=== PATIENT | female | born 1975 | race Caucasian/White ===

== ENCOUNTER 2019-11-13 11:49 | Observation (INO) | payer BC ==
[2019-11-13] MEDS ORDERED: SODIUM CHLORIDE 0.9% 1,000 ML IV STA (11:51)
[2019-11-13] MEDS ORDERED: ONDANSETRON 4 MG/2 ML VIAL IVP STA (12:08)
[2019-11-13] MEDS ORDERED: FAMOTIDINE 20 MG/2 ML VIAL IV STA (12:08)
--- NOTE | 2019-11-13 12:15 | ED ---
General Adult HPI - General Chief complaint: Recheck/Abnormal Lab/Rx Stated complaint: pt states gallstone and bloodclot by vein Time Seen by Provider: 11/13/19 11:50 Source: patient, family, RN/MD, RN notes reviewed Mode of arrival: ambulatory Limitations: no limitations - History of Present Illness Initial comments: patient is a pleasant 43-year-old female presenting to the emergency department with abdominal discomfort. Onset of symptoms was around 3 days ago. Patient has associated nausea. No vomiting or diarrhea. Patient does have history of previous cholecystectomy. Patient states discomfort is mostly mid and right abdomen and somewhat towards the back as well. No fevers. Discomfort is starting to become somewhat severe. Patient saw her doctor yesterday andhad blood work done and ultrasound done this morning. Patient was advised to come to the emergency department. - Related Data Allergies Allergy/AdvReac Type Severity Reaction Status Date / Time doxycycline Allergy Rash/Hives Verified 11/13/19 12:41 hydrocodone Allergy Unknown Verified 11/13/19 12:35 hydromorphone Allergy Unknown Verified 11/13/19 12:35 morphine Allergy Unknown Verified 11/13/19 12:35 sulfamethoxazole Allergy Rash/Hives Verified 11/13/19 12:41 [From Bactrim] tramadol Allergy Unknown Verified 11/13/19 12:35 trimethoprim [From Bactrim] Allergy Rash/Hives Verified 11/13/19 12:41 Review of Systems ROS Statement: Those systems with pertinent positive or pertinent negative responses have been documented in the HPI. ROS Other: All systems not noted in ROS Statement are negative. Constitutional: Denies: fever Eyes: Denies: eye pain ENT: Denies: ear pain Respiratory: Denies: cough, dyspnea Cardiovascular: Denies: chest pain Endocrine: Denies: fatigue Gastrointestinal: Reports: as per HPI, abdominal pain Genitourinary: Denies: dysuria Musculoskeletal: Reports: back pain Skin: Denies: rash Neurological: Denies: weakness Past Medical History Past Medical History: Fibromyalgia History of Any Multi-Drug Resistant Organisms: None Reported Past Surgical History: Section, Cholecystectomy Past Psychological History: No Psychological Hx Reported Smoking Status: Never smoker Past Alcohol Use History: None Reported Past Drug Use History: None Reported General Exam Limitations: no limitations General appearance: alert, in no apparent distress Head exam: Present: normocephalic Eye exam: Present: normal appearance, PERRL ENT exam: Present: normal oropharynx Neck exam: Present: normal inspection Respiratory exam: Present: normal lung sounds bilaterally Cardiovascular Exam: Present: regular rate, normal rhythm Expanded Peripheral pulses: 2+: Dorsalis Pedis (R), Dorsalis Pedis (L) GI/Abdominal exam: Present: soft, tenderness (mild to moderate tenderness mostly in the epigastric region), normal bowel sounds. Absent: distended, guarding, rebound, rigid, pulsatile mass Extremities exam: Present: normal inspection. Absent: pedal edema, calf tenderness Neurological exam: Present: alert Psychiatric exam: Present: normal affect, normal mood Skin exam: Present: normal color Course Vital Signs 11/13/19 12:07 Temperature 98.7 F Pulse Rate 94 Respiratory 18 Rate Blood Pressure 143/99 O2 Sat by Pulse 100 Oximetry - Reevaluation(s) Reevaluation #1: 11/13/19 12:13 Case was discussed with Dr. Dubois who did see patient. She states patient presented with right upper quadrant pain. She states hepatitis panel liver functions were normal from yesterday. Ultrasound showed common bile duct dilated with concern for echogenic stone. There is also question of portal vein thrombosis. She does request admission with vascular and GI consult. Also request computed tomography scan and d-dimer. Patient and should receive heparin if d-dimer is positive or CT is positive otherwise can defer until vascular evaluation. Medical Decision Making - Medical Decision Making Patient reevaluated and resting comfortably in bed. Patient and family updated. Case was discussed in detail with Dr. Allen who will admit covering for Dr. Dubois. - Lab Data Result diagrams: 11/13/19 12:30 11/13/19 12:30 Lab Results 11/13/19 11/13/19 11/13/19 Range/Units 12:30 12:30 12:30 WBC 7.5 (3.8-10.6) k/uL RBC 5.05 (3.80-5.40) m/uL Hgb 14.0 (11.4-16.0) gm/dL Hct 41.5 (34.0-46.0) % MCV 82.2 (80.0-100.0) fL MCH 27.7 (25.0-35.0) pg MCHC 33.7 (31.0-37.0) g/dL RDW 12.6 (11.5-15.5) % Plt Count 384 (150-450) k/uL Neutrophils % 77 % Lymphocytes % 17 % Monocytes % 4 % Eosinophils % 1 % Basophils % 0 % Neutrophils # 5.8 (1.3-7.7) k/uL Lymphocytes # 1.3 (1.0-4.8) k/uL Monocytes # 0.3 (0-1.0) k/uL Eosinophils # 0.1 (0-0.7) k/uL Basophils # 0.0 (0-0.2) k/uL PT 10.2 (9.0-12.0) sec INR 0.9 (<1.2) APTT 23.8 (22.0-30.0) sec D-Dimer 0.23 (<0.60) mg/L FEU Sodium 139 (137-145) mmol/L Potassium 4.5 (3.5-5.1) mmol/L Chloride 104 (98-107) mmol/L Carbon Dioxide 24 (22-30) mmol/L Anion Gap 11 mmol/L BUN 9 (7-17) mg/dL Creatinine 0.97 (0.52-1.04) mg/dL Est GFR (CKD-EPI)AfAm 82 (>60 ml/min/1.73 sqM) Est GFR (CKD-EPI)NonAf 71 (>60 ml/min/1.73 sqM) Glucose 103 H (74-99) mg/dL Calcium 10.1 (8.4-10.2) mg/dL Total Bilirubin 0.7 (0.2-1.3) mg/dL AST 31 (14-36) U/L ALT 23 (4-34) U/L Alkaline Phosphatase 69 (38-126) U/L Total Protein 8.4 H (6.3-8.2) g/dL Albumin 5.2 H (3.5-5.0) g/dL Lipase 63 (23-300) U/L - Radiology Data Radiology results: report reviewed (computed tomography scan of the abdomen pelvis does not show any evidence of portal vein thrombosis. Common bile duct is mildly prominent at 8 mm compatible with postoperative state.) Disposition Clinical Impression: Abdominal pain Disposition: ADMITTED IP TO THIS HOSP Is patient prescribed a controlled substance at d/c from ED?: No Referrals: Chrau Dubois MD [Primary Care Provider] - 1-2 days Decision Time: 14:09
[2019-11-13 13:07] LABS: Basophils % (A) 0 %; Eosinophils # (A) 0.1 k/uL (0-0.7); Eosinophils % (A) 1 %; HCT 41.5 % (34.0-46.0); Lymphocytes # (A) 1.3 k/uL (1.0-4.8); Lymphocytes % (A) 17 %; MCH 27.7 pg (25.0-35.0); MCHC 33.7 g/dL (31.0-37.0); MCV 82.2 fL (80.0-100.0); Mean Platelet Volume 7.8; Monocytes # (A) 0.3 k/uL (0-1.0); Monocytes % (A) 4 %; Neutrophils # (A) 5.8 k/uL (1.3-7.7); Neutrophils % (A) 77 %; Platelet Count 384 k/uL (150-450); RBC 5.05 m/uL (3.80-5.40); RDW 12.6 % (11.5-15.5); WBC 7.5 k/uL (3.8-10.6)
[2019-11-13 13:15] LABS: Albumin 5.2 g/dL (3.5-5.0); Calcium 10.1 mg/dL (8.4-10.2); Potassium 4.5 mmol/L (3.5-5.1); Total Bilirubin 0.7 mg/dL (0.2-1.3); Total Protein 8.4 g/dL (6.3-8.2)
--- NOTE | 2019-11-13 13:15 | XR ---
KUB HISTORY: Abdominal pain, flank pain KUB submitted on 2 images Surgical clips present right quadrant. Lung bases are clear. There is no evident pneumoperitoneum or bowel obstruction. There is a metallic post through the region of the umbilical integument. Degenerat dina disc changes are present visualized spine. IMPRESSION: No acute abnormality
[2019-11-13 13:20] LABS: D-Dimer 0.23 mg/L FEU (<0.60); INR 0.9 (<1.2); Partial Thromboplastin Time 23.8 sec (22.0-30.0); Prothrombin Time 10.2 sec (9.0-12.0)
--- NOTE | 2019-11-13 13:48 | CT ---
EXAMINATION TYPE: CT abdomen pelvis w con DATE OF EXAM: 11/13/2019 COMPARISON: 10/21/2015 HISTORY: Abdominal pain CT DLP: 714.6 mGycm CONTRAST: CT scan of the abdomen and pelvis is performed without Oral Contrast and with IV Contrast, patient in jected with 100 mL of Isovue 300. FINDINGS: LUNG BASES-: No visible nodule. No infiltrate. LIVER/GB: Mild hepatic steatosis. The gallbladder surgically absent. The common bile duct is mildly prominent at 8 mm compatible with postoperative state. Normal-appearing portal vein without evidence for portal vein thrombosis. No space occupying hepatic lesion. Biliary tree is of normal caliber. PANCREAS: No inflammation. No distinct mass. SPLEEN: No splenic enlargement. No lesion seen. ADRENALS: No nodule. No thickening. KIDNEYS/BLADDER: No hydronephrosis. No nephrolithiasis. No distinct renal mass. Urinary bladder g rossly unremarkable. BOWEL: Normal appendix. Normal bowel caliber. No inflammation. Sigmoid diverticulosis without diver ticulitis. GENITAL ORGANS: Noted are multiple cervical nabothian cysts. Left ovarian cyst identified measuring 1.5 cm. LYMPH NODES: No greater than 1cm abdominal or pelvic lymph nodes are appreciated. AORTA: No significant abnormality. OSSEOUS STRUCTURES: No significant abnormality is seen. OTHER: No significant additional abnormality is seen. IMPRESSION: 1. The common bile duct is mildly prominent at 8 mm compatible with postoperative state. 2. Normal-appearing portal vein without evidence for portal vein thrombosis. 3. Mild hepatic steatosis.
[2019-11-13] MEDS ORDERED: ONDANSETRON 4 MG/2 ML VIAL IVP PRN (14:09)
[2019-11-13] MEDS ORDERED: NALOXONE 0.4 MG/ML 1 ML VIAL IV PRN (14:09)
[2019-11-13] MEDS: SODIUM CHLORIDE 0.9% 1,000 ML IV SCH (14:40)
--- NOTE | 2019-11-13 18:03 | P.HPIM ---
History of Present Illness H&P Date: 11/13/19 4-3 years old female patient of Dr. Dubois with past medical history of fibromyalgia comes in with episodes of nausea for the past month with abdominal pain started a few days ago. Patient does have a history of pancreatitis one year ago the etiology was not known. Had cholecystectomy and multiple years ago. Patient denies any fever or chills she was seen by Dr. Fernández yesterday as outpatient ultrasound of the abdomen was ordered which was concerning for CBD dilation and portal vein thrombosis. Patient was sent to hospital for evaluation. Patient continues to have abdominal pain. No episodes of diarrhea or change in bowel habits noted. Patient denies any use of alcohol or history of GERD in the past. Patient was recently treated for pneumonia 3 weeks ago and was started on Augmentin 2 days ago.an evaluation vitals were normal with a temp of 98.7 blood pressure 143/99 saturation 100% on room air.CBC unremarkable PT/INR unremarkable d-dimer came back as negative. Lipase normal ASCHD within normal limits alkaline phosphatase is normal. Creatinine normal 0.97. Patient underwent CAT scan of the abdomenwhich is mildly predominate at 8 mm firm compatible with postoperative state portal vein was evaluatedand was without portal vein thrombosesmild hepatic steatosis was noted.patient presentation is unlikely to be related to portal vein thrombosisas for surgery and gas troenterology were consulted for possible portal vein thrombosis and EGD. Patient be Nothing by mouth after midnight Protonix 40 started and IV daily. normal saline at 75 mL per hour. Fecal occult will be obtained. Patient be kept for observation. Patient's presentation is likely peptic ulcer disease will continue Protonix 40 IV daily until seen by contract designer Review of Systems Constitutional: Denies chills, Denies fever, Denies lethargy, Denies malaise, D enies poor appetite, Denies weakness, Denies weight loss Eyes: denies decreased vision, denies diplopia, denies discharge, denies pain Ears: deny: decreased hearing Ears, nose, mouth and throat: Denies dental pain, Denies headache, Denies nasal discharge, Denies nose pain Cardiovascular: Denies chest pain, Denies decreased exercise tolerance, Denies edema, Denies high blood pressure, Denies irregular heart beat, Denies palpitations, Denies paroxysmal nocturnal dyspnea, Denies rapid heart beat, D enies shortness of breath Respiratory: Denies congestion, Denies cough, Denies cough with sputum, Denies dyspnea, Denies home oxygen, Denies wheezing Gastrointestinal: endorses abdominal pain, Denies change in bowel habits, Denies coffee ground emesis, Denies early satiety, Denies excessive gas, Denies heartburn, Denies hematemesis, Denies hematochezia, Denies loss of appetite, endorses nausea Genitourinary: Denies dysuria, Denies flank pain, Denies kidney stones, Denies menorrhagia, Denies urgency, Denies urinary frequency Musculoskeletal: Denies gait dysfunction, Denies limitation of motion, Denies morning stiffness, Denies muscle cramps Integumentary: Denies rash, Denies wounds, Denies brittle nails, Denies change in hair/nails, Denies darkening of skin Neurological: Denies balance difficulties, Denies change in speech, Denies double vision, Denies gait dysfunction, Denies loss of vision, Denies motor disturbance, Denies numbness, Denies paralysis, Denies paresthesias, Denies seizures Psychiatric: Denies anxiety, Denies depression Endocrine: Denies excessive sweating, Denies excessive thirst, Denies high blood sugars, Denies palpitations Hematologic/Lymphatic: Denies easy bruising, Denies lymphadenopathy Past Medical History Past Medical History: Asthma, Fibromyalgia, GERD/Reflux, Pneumonia, Renal Disease, Thyroid Disorder Additional Past Medical History / Comment(s): Diverticular disease, IBS, ulcerative colitis, polynephritis, UTIs, bronchitis, hypothyroid History of Any Multi-Drug Resistant Organisms: None Reported Past Surgical History: Section, Cholecystectomy Additional Past Surgical History / Comment(s): Bilateral myringotomy/tubes, colonoscopy, EGD, Past Anesthesia/Blood Transfusion Reactions: Motion Sickness, Postoperative Nausea & Vomiting (PONV) Smoking Status: Former smoker - Past Family History Father Family Medical History: CVA/TIA, Myocardial Infarction ([place]) Additional Family Medical History / Comment(s): Father had a Mi at the age of 40 yrs. Mother History Unknown: Yes Medications and Allergies Home Medications Medication Instructions Recorded Confirmed Type Albuterol Sulfate [Ventolin HFA] 1 - 2 puff INHALATION RT-QID PRN 11/13/19 11/13/19 History Cetirizine HCl [Zyrtec] 10 mg PO HS 11/13/19 11/13/19 History Famotidine [Pepcid] 20 mg PO BID 11/13/19 11/13/19 History Fluticasone Propionate [Flonase 1 - 2 spray EA NOSTRIL BID PRN 11/13/19 11/13/19 History Allergy Relief] Ibuprofen [Motrin] 800 mg PO TID PRN 11/13/19 11/13/19 History Levothyroxine Sodium 25 mcg PO DAILY 11/13/19 11/13/19 History Ondansetron HCl [Zofran] 8 mg PO BID 11/13/19 11/13/19 History Pnv,Calcium 72/Iron/Folic Acid 1 tab PO DAILY 11/13/19 11/13/19 History [ Plus Tablet] clonazePAM [KlonoPIN] 0.25 mg PO BID PRN 11/13/19 11/13/19 History Allergies Allergy/AdvReac Type Severity Reaction Status Date / Time amoxicillin [From Augmentin] Allergy Rash/Hives Verified 11/13/19 16:20 clavulanic acid Allergy Rash/Hives Verified 11/13/19 16:20 [From Augmentin] doxycycline Allergy Rash/Hives Verified 11/13/19 16:20 sulfamethoxazole Allergy Rash/Hives Verified 11/13/19 16:20 [From Bactrim] tramadol Allergy Unknown Verified 11/13/19 16:20 trimethoprim [From Bactrim] Allergy Rash/Hives Verified 11/13/19 16:20 hydrocodone AdvReac Nausea & Verified 11/13/19 16:20 Vomiting hydromorphone AdvReac Nausea & Verified 11/13/19 16:20 Vomiting morphine AdvReac Nausea & Verified 11/13/19 16:20 Vomiting Physical Exam Vitals: Vital Signs Temp Pulse Resp BP Pulse Ox 11/13/19 12:07 98.7 F 94 18 143/99 100 Intake and Output 11/13/19 11/13/19 11/13/19 06:59 14:59 22:59 Other: Weight 68.039 kg 68.039 kg - Constitutional General appearance: cooperative, no acute distress, obese - EENT Eyes: anicteric sclerae, PERRLA, normal appearance ENT: hearing grossly normal - Neck Neck: no lymphadenopathy, normal ROM, no other, no rigidity, no stridor, no thyromegaly - Respiratory Respiratory: bilateral: CTA, negative: diminished, dullness, rales, rhonchi - Cardiovascular Rhythm: regular Heart sounds: normal: S1, S2 Abnormal Heart Sounds: no systolic murmur, no diastolic murmur, no rub, no S3 Gallop, no S4 Gallop, no click, no other - Gastrointestinal General gastrointestinal: normal bowel sounds, softtender in the right upper quadrant - Integumentary Integumentary: no rash - Neurologic Neurologic: CNII-XII intact - Musculoskeletal Musculoskeletal: gait normal, strength equal bilaterally - Psychiatric Psychiatric: A&O x's 3, appropriate affect Results CBC & Chem 7: 11/13/19 12:30 11/13/19 12:30 Labs: Abnormal Lab Results - Last 24 Hours (Table) 11/13/19 Range/Units 12:30 Glucose 103 H (74-99) mg/dL Total Protein 8.4 H (6.3-8.2) g/dL Albumin 5.2 H (3.5-5.0) g/dL Thrombosis Risk Factor Assmnt - DVT/VTE Prophylaxis DVT/VTE Prophylaxis: Mechanical Prophylaxis ordered - Choose All That Apply Any of the Below Risk Factors Present?: Yes Each Factor Represents 1 point: Age 41-60 years, Hx of IBD, Obesity (BMI >25) Other Risk Factors: No Other congenital or acquired thrombophilia - If yes, enter type in comment: No Thrombosis Risk Factor Assessment Total Risk Factor Score: 3 Thrombosis Risk Factor Assessment Level: Moderate Risk Assessment and Plan Plan: #1 acute epigastric and right upper quadrant pain likely secondary to peptic ulcer disease. Computed tomography scan negative for portal vein thrombosis though ultrasound positive for portal vein thrombosis with have vascular surgery and GI evaluated the patient patient to be kept nothing by mouth after midnight for possible EGD tomorrow. Continue protonic 40 mg IV daily. Patient does take Motrin as outpatient that could cause gastritis. #2 fibromyalgia stable #3 anxiety continue Klonopin 0.5 mg twice a day #4 questionable portal vein thrombosis on ultrasound imaging vascular surgery consulted #5 hypothyroidism continue levothyroxine 25 g by mouth daily #6 DVT prophylaxis encourage ambulation and SCDs #7 CODE STATUS full code Disposition patient be kept observation overnight
[2019-11-13] MEDS: clonazePAM 0.5 MG TAB PO PRN (20:49)
[2019-11-13] MEDS ORDERED: PROCHLORPERAZINE 5 MG TAB PO PRN (20:53)
[2019-11-13] MEDS: ONDANSETRON 4 MG/2 ML VIAL IVP PRN (21:49)
[2019-11-13 22:06] LABS: Appearance,Urine Clear (Clear); Bilirubin,Urine Negative (Negative); Blood,Urine Moderate (Negative); Color,Urine Yellow; Glucose,Urine (UA) Negative (Negative); Ketones,Urine 2+ (Negative); Leukocyte Esterase,Urine Negative (Negative); Mucus,Urine Rare /hpf; Nitrite,Urine Negative (Negative); PH, Urine 5.5 (5.0-8.0); Protein,Urine Negative (Negative); RBC,Urine 29 /hpf (0-5); Specific Gravity,Urine >1.050 (1.001-1.035); Squamous Epithelial Cell,Urine 1 /hpf (0-4); Urobilinogen,Urine <2.0 mg/dL (<2.0); WBC,Urine <1 /hpf (0-5)
--- NOTE | 2019-11-13 23:46 | P.CONS ---
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 She reports sharp, very severe pain in the right upper quadrant of her abdomen. She denies any prior similar episodes. She had outpatient ultrasound ordered at [facility] report she was told to present to the hospital due to findings from that exam. She reports history of nausea occurring intermittently for the past few months but has been worse in association with the pain. No vomiting reported. She states that at baseline she has 6-7 bowel movements daily. No signs or symptoms of GI bleeding reported. 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 She reports a history of GERD for which she takes Pepcid therapy. She denies any dysphagia or odynophagia. On presentation to the hospital labs were unremarkable with the WBC 7.5, hemoglobin 14, platelet count 384,000, INR 0.9, total bilirubin 0.7, alkaline phosphatase 69, AST 31 and ALT 23 with a lipase of 63. Computed tomography scan of the abdomen was performed in evaluation and significant for a mildly dilated common bile duct at 8 mm consistent with postcholecystectomy state, and hepatic steatosis. Review of Systems REVIEW OF SYSTEMS: CONSTITUTIONAL: Denies any fevers, chills, weight change or fatigue. CARDIOVASCULAR: Denies any chest pain, palpitations high or low blood pressures RESPIRATORY: Denies any shortness of breath, hemoptysis or cough. GENITOURINARY: No dysuria or hematuria. MUSCULOSKELETAL: No weakness reported. SKIN: Denies any new rashes or lesions, jaundice or pallor. PSYCHIATRIC: Denies any change in mood but appears anxious. NEUROLOGY: Denies headache, denies any new focal deficits. EARS/NOSE/THROAT: No recent hearing change, congestion, nasal discharge or sore throat. EYES: No pain in eyes, discharge or change in vision. GASTROINTESTINAL: As per HPI. Past Medical History Past Medical History: Asthma, Fibromyalgia, GERD/Reflux, Pneumonia, Renal Disease, Thyroid Disorder Additional Past Medical History / Comment(s): Diverticular disease, IBS, ulcerative colitis, polynephritis, UTIs, bronchitis, hypothyroid History of Any Multi-Drug Resistant Organisms: None Reported Past Surgical History: Section, Cholecystectomy Additional Past Surgical History / Comment(s): Bilateral myringotomy/tubes, colonoscopy, EGD, Past Anesthesia/Blood Transfusion Reactions: Motion Sickness, Postoperative Nausea & Vomiting (PONV) Smoking Status: Former smoker - Past Family History Father Family Medical History: CVA/TIA, Myocardial Infarction ([place]) Additional Family Medical History / Comment(s): Father had a Mi at the age of 40 yrs. Mother History Unknown: Yes Medications and Allergies Home Medications Medication Instructions Recorded Confirmed Type Albuterol Sulfate [Ventolin HFA] 1 - 2 puff INHALATION RT-QID PRN 11/13/19 11/13/19 History Cetirizine HCl [Zyrtec] 10 mg PO HS 11/13/19 11/13/19 History Famotidine [Pepcid] 20 mg PO BID 11/13/19 11/13/19 History Fluticasone Propionate [Flonase 1 - 2 spray EA NOSTRIL BID PRN 11/13/19 11/13/19 History Allergy Relief] Ibuprofen [Motrin] 800 mg PO TID PRN 11/13/19 11/13/19 History Levothyroxine Sodium 25 mcg PO DAILY 11/13/19 11/13/19 History Ondansetron HCl [Zofran] 8 mg PO BID 11/13/19 11/13/19 History Pnv,Calcium 72/Iron/Folic Acid 1 tab PO DAILY 11/13/19 11/13/19 History [ Plus Tablet] clonazePAM [KlonoPIN] 0.25 mg PO BID PRN 11/13/19 11/13/19 History Allergies Allergy/AdvReac Type Severity Reaction Status Date / Time amoxicillin [From Augmentin] Allergy Rash/Hives Verified 11/13/19 16:20 clavulanic acid Allergy Rash/Hives Verified 11/13/19 16:20 [From Augmentin] doxycycline Allergy Rash/Hives Verified 11/13/19 16:20 sulfamethoxazole Allergy Rash/Hives Verified 11/13/19 16:20 [From Bactrim] tramadol Allergy Unknown Verified 11/13/19 16:20 trimethoprim [From Bactrim] Allergy Rash/Hives Verified 11/13/19 16:20 hydrocodone AdvReac Nausea & Verified 11/13/19 16:20 Vomiting hydromorphone AdvReac Nausea & Verified 11/13/19 16:20 Vomiting morphine AdvReac Nausea & Verified 11/13/19 16:20 Vomiting Physical Exam Vitals: Vital Signs Temp Pulse Resp BP Pulse Ox 11/13/19 12:07 98.7 F 94 18 143/99 100 Intake and Output 11/13/19 11/13/19 11/13/19 06:59 14:59 22:59 Other: Weight 68.039 kg 68.039 kg On physical examination, patient appears comfortable in no apparent distress. HEAD: Normocephalic, atraumatic. EYES: No scleral icterus. No conjunctival injection. MOUTH: No lesions, tongue midline. NECK: Trachea midline, no gross abnormalities. CHEST: Clear to auscultation with no wheezing or rhonchi appreciated. HEART: Regular rate and rhythm. ABDOMEN: Soft, tender to palpation. Bowel sounds are positive. No organomegaly. No guarding or rigidity. EXTREMITIES: No pedal edema. SKIN: No rashes, no jaundice. NEUROLOGIC: Alert and oriented x3. No focal deficits. Results CBC & Chem 7: 11/13/19 12:30 11/13/19 12:30 Labs: Abnormal Lab Results - Last 24 Hours (Table) 11/13/19 Range/Units 12:30 Glucose 103 H (74-99) mg/dL Total Protein 8.4 H (6.3-8.2) g/dL Albumin 5.2 H (3.5-5.0) g/dL CT scan - abdomen: report reviewed (Computed tomography scan of the abdomen with findings of a 8 mm CBD in the setting of prior cholecystectomy and hepatic steatosis) Assessment and Plan (1) Abdominal pain Narrative/Plan: 43-year-old female with multiple medical comorbidities presenting for sudden onset of sharp right upper quadrant abdominal pain. No prior episodes reported. She is status post cholecystectomy in the remote past. No signs or symptoms of GI bleeding noted. The patient had a computed tomography scan in evaluation with no evidence of pancreatic inflammation or hepatobiliary pathology, with a mild dilation of the CBD to 8 mm likely secondary to postcholecystectomy state. Lipase also negative on laboratory evaluation with normal liver enzymes. Patient does have a known history of GERD for which she is on Pepcid twice daily at home and also takes Motrin as needed for pain. Unclear etiology of symptoms, may be functional in etiology, secondary to gastritis or peptic ulcer disease, musculoskeletal or other etiology. Current Visit: Yes Status: Acute Code(s): R10.9 - UNSPECIFIED ABDOMINAL PAIN SNOMED Code(s): 12442370 (2) GERD (gastroesophageal reflux disease) Current Visit: Yes Status: Acute Code(s): K21.9 - GASTRO-ESOPHAGEAL REFLUX DISEASE WITHOUT ESOPHAGITIS SNOMED Code(s): 916478475 Plan: Supportive care Protonix increased to 40 mg twice daily Dicyclomine 20 mg 4 times a day added for symptomatic treatment of abdominal pain Continue to monitor CBC, CMP clinically No plans for endoscopic evaluation at this time, however will reevaluate this if labs or clinical symptoms warrant further evaluation Thank you for allowing us to participate in the care of the patient we will continue to follow
[2019-11-14] MEDS: ONDANSETRON 4 MG/2 ML VIAL IVP PRN ×3 (02:00→10:18)
[2019-11-14 06:05] VITALS: PULSE 74
[2019-11-14] MEDS ORDERED: LEVOTHYROXINE 25 MCG TAB PO SCH (06:30)
[2019-11-14 08:01] LABS: ALT 20 U/L (4-34); AST 25 U/L (14-36); African American GFR (CKD) >90 (>60 ml/min/1.73 sqM); Albumin 4.6 g/dL (3.5-5.0); Alkaline Phosphatase 51 U/L (38-126); Anion Gap 10 mmol/L; Blood Urea Nitrogen 9 mg/dL (7-17); Calcium 9.2 mg/dL (8.4-10.2); Carbon Dioxide 24 mmol/L (22-30); Chloride 106 mmol/L (98-107); Glucose 93 mg/dL (74-99); Non-African American GFR(CKD) >90 (>60 ml/min/1.73 sqM); Sodium 140 mmol/L (137-145); Total Bilirubin 0.7 mg/dL (0.2-1.3); Total Protein 7.3 g/dL (6.3-8.2)
[2019-11-14 08:05] LABS: HCG,Qualitative Serum Not Detected
[2019-11-14] MEDS ORDERED: PANTOPRAZOLE 40 MG/10 ML VIAL IV SCH ×2 (09:00)
[2019-11-14 10:14] VITALS: BMI 26.5
[2019-11-14] MEDS: clonazePAM 0.5 MG TAB PO PRN (10:15)
[2019-11-14] MEDS: DICYCLOMINE 20 MG TAB PO SCH ×2 (10:15→14:23)
[2019-11-14] MEDS: SODIUM CHLORIDE 0.9% 1,000 ML IV SCH (10:17)
[2019-11-14] MEDS ORDERED: ACETAMINOPHEN TAB 325 MG TAB PO PRN (11:02)
--- NOTE | 2019-11-14 12:17 | P.GSCN ---
History of Present Illness Consult date: 11/14/19 History of present illness: The patient is a 43-year-old female with significant past medical history including fibromyalgia, previous pancreatitis, GERD, asthma and hypothyroidism. She had a previous cholecystectomy for hypokinetic gallbladder. She was being seen by her primary care physician and underwent an ultrasound at an outpatient facility. This ultrasound apparently made note of a possible portal vein thrombus per the patient. She was called by her primary care and supposedly recommended to come into the hospital. She states her pain is somewhat impro hardy, she just has some generalized abdominal pain from not eating the past 2 days. She denies any vomiting. She admits increased stressors at home Past Medical History Past Medical History: Asthma, Fibromyalgia, GERD/Reflux, Pneumonia, Renal Disease, Thyroid Disorder Additional Past Medical History / Comment(s): Diverticular disease, IBS, ulcerative colitis, polynephritis, UTIs, bronchitis, hypothyroid History of Any Multi-Drug Resistant Organisms: None Reported Past Surgical History: Section, Cholecystectomy Additional Past Surgical History / Comment(s): Bilateral myringotomy/tubes, colonoscopy, EGD, Past Anesthesia/Blood Transfusion Reactions: Motion Sickness, Postoperative Nausea & Vomiting (PONV) Smoking Status: Former smoker - Past Family History Father Family Medical History: CVA/TIA, Myocardial Infarction ([place]) Additional Family Medical History / Comment(s): Father had a Mi at the age of 40 yrs. Mother History Unknown: Yes Medications and Allergies Home Medications Medication Instructions Recorded Confirmed Type Albuterol Sulfate [Ventolin HFA] 1 - 2 puff INHALATION RT-QID PRN 11/13/19 11/13/19 History Cetirizine HCl [Zyrtec] 10 mg PO HS 11/13/19 11/13/19 History Famotidine [Pepcid] 20 mg PO BID 11/13/19 11/13/19 History Fluticasone Propionate [Flonase 1 - 2 spray EA NOSTRIL BID PRN 11/13/19 11/13/19 History Allergy Relief] Ibuprofen [Motrin] 800 mg PO TID PRN 11/13/19 11/13/19 History Levothyroxine Sodium 25 mcg PO DAILY 11/13/19 11/13/19 History Ondansetron HCl [Zofran] 8 mg PO BID 11/13/19 11/13/19 History Pnv,Calcium 72/Iron/Folic Acid 1 tab PO DAILY 11/13/19 11/13/19 History [ Plus Tablet] clonazePAM [KlonoPIN] 0.25 mg PO BID PRN 11/13/19 11/13/19 History Allergies Allergy/AdvReac Type Severity Reaction Status Date / Time amoxicillin [From Augmentin] Allergy Rash/Hives Verified 11/13/19 16:20 clavulanic acid Allergy Rash/Hives Verified 11/13/19 16:20 [From Augmentin] doxycycline Allergy Rash/Hives Verified 11/13/19 16:20 sulfamethoxazole Allergy Rash/Hives Verified 11/13/19 16:20 [From Bactrim] tramadol Allergy Unknown Verified 11/13/19 16:20 trimethoprim [From Bactrim] Allergy Rash/Hives Verified 11/13/19 16:20 hydrocodone AdvReac Nausea & Verified 11/13/19 16:20 Vomiting hydromorphone AdvReac Nausea & Verified 11/13/19 16:20 Vomiting morphine AdvReac Nausea & Verified 11/13/19 16:20 Vomiting Surgical - Exam Vital Signs Temp Pulse Resp BP Pulse Ox 98.7 F 94 18 143/99 100 11/13/19 12:07 11/13/19 12:07 11/13/19 12:07 11/13/19 12:07 11/13/19 12:07 Genitals a pleasant cooperative female in no acute distress. HEENT is normocephalic, atraumatic, excellent motion intact. Neck is supple, trachea is midline. Heart is regular in rate and rhythm. Lungs are clear bilaterally. Abdomen is soft, no significant tenderness. No guarding, no rebound. She has palpable radial, femoral, dorsalis pedis and posterior tibial pulses bilaterally. No clubbing cyanosis or edema of the extremities. Cranial nerves II through XII grossly intact. Normal mood and affect. Normal skin turgor temperature and moisture. Results I am unable to visualize the ultrasound results but we do have a computed tomography scan of the abdomen reveals no evidence of thrombus in the portal vein. - Labs 11/13/19 12:30 11/14/19 07:29 Abnormal Lab Results - Last 24 Hours (Table) 11/13/19 11/13/19 Range/Units 12:30 20:45 Glucose 103 H (74-99) mg/dL Total Protein 8.4 H (6.3-8.2) g/dL Albumin 5.2 H (3.5-5.0) g/dL Ur Specific [place] >1.050 H (1.001-1.035) Urine Ketones 2+ H (Negative) Urine Blood Moderate H (Negative) Urine RBC 29 H (0-5) /hpf Urine Mucus Rare H (None) /hpf Microbiology - Last 24 Hours (Table) 11/13/19 20:45 Urine Culture - Preliminary Urine,Clean Catch Diabetes panel 11/13/19 11/14/19 Range/Units 12:30 07:29 Sodium 139 140 (137-145) mmol/L Potassium 4.5 4.0 (3.5-5.1) mmol/L Chloride 104 106 (98-107) mmol/L Carbon Dioxide 24 24 (22-30) mmol/L BUN 9 9 (7-17) mg/dL Creatinine 0.97 0.78 (0.52-1.04) mg/dL Glucose 103 H 93 (74-99) mg/dL Calcium 10.1 9.2 (8.4-10.2) mg/dL AST 31 25 (14-36) U/L ALT 23 20 (4-34) U/L Alkaline Phosphatase 69 51 (38-126) U/L Total Protein 8.4 H 7.3 (6.3-8.2) g/dL Albumin 5.2 H 4.6 (3.5-5.0) g/dL Calcium panel 11/13/19 11/14/19 Range/Units 12:30 07:29 Calcium 10.1 9.2 (8.4-10.2) mg/dL Albumin 5.2 H 4.6 (3.5-5.0) g/dL Pituitary panel 11/13/19 11/14/19 Range/Units 12:30 07:29 Sodium 139 140 (137-145) mmol/L Potassium 4.5 4.0 (3.5-5.1) mmol/L Chloride 104 106 (98-107) mmol/L Carbon Dioxide 24 24 (22-30) mmol/L BUN 9 9 (7-17) mg/dL Creatinine 0.97 0.78 (0.52-1.04) mg/dL Glucose 103 H 93 (74-99) mg/dL Calcium 10.1 9.2 (8.4-10.2) mg/dL Adrenal panel 11/13/19 11/14/19 Range/Units 12:30 07:29 Sodium 139 140 (137-145) mmol/L Potassium 4.5 4.0 (3.5-5.1) mmol/L Chloride 104 106 (98-107) mmol/L Carbon Dioxide 24 24 (22-30) mmol/L BUN 9 9 (7-17) mg/dL Creatinine 0.97 0.78 (0.52-1.04) mg/dL Glucose 103 H 93 (74-99) mg/dL Calcium 10.1 9.2 (8.4-10.2) mg/dL Total Bilirubin 0.7 0.7 (0.2-1.3) mg/dL AST 31 25 (14-36) U/L ALT 23 20 (4-34) U/L Alkaline Phosphatase 69 51 (38-126) U/L Total Protein 8.4 H 7.3 (6.3-8.2) g/dL Albumin 5.2 H 4.6 (3.5-5.0) g/dL Assessment and Plan Assessment: #1 abdominal pain #2 abnormal recent abdominal ultrasound Plan: At this time and does not appear to be any significant abnormalities from a vascular standpoint on the CT of the abdomen and pelvis. No recommendations for anticoagulation given his findings. Continue per GI recommendations. Thank you for allowing me to participate in the care of your patient
--- NOTE | 2019-11-14 12:35 | P.DS ---
Providers Date of admission: 11/13/19 14:14 Attending physician: Roya Calvillo MD Consults: 11/13/19 14:12 Consult Physician Urgent Consulting Provider: Silver Camargo Consult Reason/Comments: eval cbd dilation, see us report Do you want consulting provider notified?: Yes 11/13/19 14:13 Consult Physician Urgent Consulting Provider: Eleanor Garcia Consult Reason/Comments: eval portal vein, see US report Do you want consulting provider notified?: Yes Primary care physician: [facility] Course: this is 43-year-old years female who presented to the emergency department with abdominal pain nausea and vomiting. Initial computed tomography scan of the abdomen showed negative finding for intra-abdominal process but patient had ultrasound that showed possibility of portal thrombosis and that was reviewed by radiology and vascular surgery and patient felt stable from that perspective. The etiology for her abdominal pain nausea and vomiting felt to be related to her history of chronic GI issues exacerbated with viral gastroenteritis and patient and can you to have no nausea or vomiting over the last 24 hours prior to discharge was able to tolerate clear liquid diet without difficulties and had one bowel movement positive for mucus but no blood in the hospital evaluated by GI who recommended EGD and colonoscopy outpatient as patient had improved during the hospital stay. Patient and her along with family member at the bedside agreed to the current treatment plan and would like to follow-up closely with her primary care physician within 7 days also follow-up with GI on outpatient appointment for EGD and colonoscopy in the future. Patient will be continued on Protonix twice daily and resume her home medication per her family physician recommendation. Patient was discharged in stable condition Plan - Discharge Summary Discharge Rx Participant: No New Discharge Prescriptions: No Action Pnv,Calcium 72/Iron/Folic Acid [ Plus Tablet] 1 tab PO DAILY Ibuprofen [Motrin] 800 mg PO TID PRN PRN Reason: Pain Fluticasone Propionate [Flonase Allergy Relief] 1 - 2 spray EA NOSTRIL BID PRN PRN Reason: Allergy Symptoms Famotidine [Pepcid] 20 mg PO BID Albuterol Sulfate [Ventolin HFA] 1 - 2 puff INHALATION RT-QID PRN PRN Reason: Shortness Of Breath Ondansetron HCl [Zofran] 8 mg PO BID clonazePAM [KlonoPIN] 0.25 mg PO BID PRN PRN Reason: Anxiety Levothyroxine Sodium 25 mcg PO DAILY Cetirizine HCl [Zyrtec] 10 mg PO HS Discharge Medication List Albuterol Sulfate [Ventolin HFA] 1 - 2 puff INHALATION RT-QID PRN 11/13/19 [History] Cetirizine HCl [Zyrtec] 10 mg PO HS 11/13/19 [History] Famotidine [Pepcid] 20 mg PO BID 11/13/19 [History] Fluticasone Propionate [Flonase Allergy Relief] 1 - 2 spray EA NOSTRIL BID PRN 11/13/19 [History] Ibuprofen [Motrin] 800 mg PO TID PRN 11/13/19 [History] Levothyroxine Sodium 25 mcg PO DAILY 11/13/19 [History] Ondansetron HCl [Zofran] 8 mg PO BID 11/13/19 [History] Pnv,Calcium 72/Iron/Folic Acid [ Plus Tablet] 1 tab PO DAILY 11/13/19 [History] clonazePAM [KlonoPIN] 0.25 mg PO BID PRN 11/13/19 [History] Follow up Appointment(s)/Referral(s): Charu Dubois MD [Primary Care Provider] - 1-2 days
[2019-11-14 12:36] VITALS: BP 138/89; RESP 18; TEMP 98.3
--- NOTE | 2019-11-14 23:32 | P.PN ---
Subjective Progress Note Date: 11/14/19 Principal diagnosis: Abdominal pain Patient is seen lying in bed reporting abdominal pain is improved but still present. Tolerating diet. No nausea or vomiting. Objective - Vital Signs Vital signs: Vital Signs Temp 98.0 F 11/14/19 06:04 Pulse 74 11/14/19 06:04 Resp 16 11/14/19 06:04 BP 147/90 11/14/19 06:04 Pulse Ox 99 11/14/19 06:04 Intake & Output 11/13/19 11/14/19 11/14/19 18:59 06:59 18:59 Intake Total 815 Balance 815 Weight 68.039 kg 68.039 kg Intake: Intake, IV Titration 225 Amount Sodium Chloride 0.9% 1, 225 000 ml @ 75 mls/hr IV . [id number] GEOR[place]IE Rx#:[id number] Oral 590 Other: Voiding Method Toilet # Voids 2 - Exam On physical examination, patient appears comfortable in no apparent distress. HEAD: Normocephalic, atraumatic. EYES: No scleral icterus. No conjunctival injection. MOUTH: No lesions, tongue midline. NECK: Trachea midline, no gross abnormalities. ABDOMEN: Soft and nontender. Bowel sounds are positive. No organomegaly. No guarding or rigidity. EXTREMITIES: No pedal edema. SKIN: No rashes, no jaundice. NEUROLOGIC: Alert and oriented x3. No focal deficits. - Labs CBC & Chem 7: 11/13/19 12:30 11/14/19 07:29 Labs: Abnormal Lab Results - Last 24 Hours (Table) 11/13/19 11/13/19 Range/Units 12:30 20:45 Glucose 103 H (74-99) mg/dL Total Protein 8.4 H (6.3-8.2) g/dL Albumin 5.2 H (3.5-5.0) g/dL Ur Specific [place] >1.050 H (1.001-1.035) Urine Ketones 2+ H (Negative) Urine Blood Moderate H (Negative) Urine RBC 29 H (0-5) /hpf Urine Mucus Rare H (None) /hpf Microbiology - Last 24 Hours (Table) 11/13/19 20:45 Urine Culture - Preliminary Urine,Clean Catch Assessment and Plan (1) Abdominal pain Narrative/Plan: 43-year-old female with multiple medical comorbidities presenting for sudden onset of sharp right upper quadrant abdominal pain. No prior episodes reported. She is status post cholecystectomy in the remote past. No signs or symptoms of GI bleeding noted. The patient had a computed tomography scan in evaluation with no evidence of pancreatic inflammation or hepatobiliary pathology, with a mild dilation of the CBD to 8 mm likely secondary to postcholecystectomy state. Lipase also negative on laboratory evaluation with normal liver enzymes. Patient does have a known history of GERD for which she is on Pepcid twice daily at home and also takes Motrin as needed for pain. Unclear etiology of symptoms, may be functional in etiology, secondary to gastritis or peptic ulcer disease, musculoskeletal or other etiology. Status: Acute Code(s): R10.9 - UNSPECIFIED ABDOMINAL PAIN SNOMED Code(s): 45113720 (2) GERD (gastroesophageal reflux disease) Status: Acute Code(s): K21.9 - GASTRO-ESOPHAGEAL REFLUX DISEASE WITHOUT ESOPHAGITIS SNOMED Code(s): 257781856 Plan: Supportive care Protonix increased to 40 mg twice daily Dicyclomine 20 mg 4 times a day added for symptomatic treatment of abdominal pain, prescription given to the patient Continue to monitor CBC, CMP clinically No plans for endoscopic evaluation at this time, however will reevaluate this if labs or clinical symptoms warrant further evaluation Thank you for allowing us to participate in the care of the patient
== END 2019-11-14 15:11 | disposition home or self-care (01) ==
LOC: EC 11:49 → 4SSUR 14:14 → 5NMEDONC 18:23
PROVIDERS: ADMIT Internal Medicine; ATTEND Internal Medicine
DX: R10.11 Right upper quadrant pain (principal); R10.13 Epigastric pain; R11.2 Nausea with vomiting, unspecified; M79.7 Fibromyalgia; F41.9 Anxiety disorder, unspecified; K76.0 Fatty (change of) liver, not elsewhere classified; E03.9 Hypothyroidism, unspecified; J45.909 Unspecified asthma, uncomplicated; K21.9 Gastro-esophageal reflux disease without esophagitis; K57.90 Diverticulosis of intestine, part unspecified, without perforation or abscess without bleeding; K58.9 Irritable bowel syndrome, unspecified; K51.90 Ulcerative colitis, unspecified, without complications; E66.9 Obesity, unspecified; Z68.26 Body mass index [BMI] 26.0-26.9, adult; Z90.49 Acquired absence of other specified parts of digestive tract; Z88.1 Allergy status to other antibiotic agents; Z88.5 Allergy status to narcotic agent; Z88.2 Allergy status to sulfonamides; Z88.0 Allergy status to penicillin; Z98.890 Other specified postprocedural states; Z79.899 Other long term (current) drug therapy; Z79.890 Hormone replacement therapy; Z87.19 Personal history of other diseases of the digestive system; Z87.01 Personal history of pneumonia (recurrent); Z87.448 Personal history of other diseases of urinary system; Z87.440 Personal history of urinary (tract) infections; Z87.09 Personal history of other diseases of the respiratory system; Z87.898 Personal history of other specified conditions; Z91.89 Other specified personal risk factors, not elsewhere classified; Z87.891 Personal history of nicotine dependence; Z82.3 Family history of stroke; Z82.49 Family history of ischemic heart disease and other diseases of the circulatory system
CPT/HCPCS: 96376 ×3; 96361 ×3; 96375 ×2; 96374; 99285; 36415; 85379; 80053 ×2; 82150; 83690; 85025; 85610; 85730; 81001; 84703; 87086; 87077; 87186; 74018; 74177; G0378 ×3; J2405 ×2; C9113; Q9967

== ENCOUNTER → 2022-12-01 | Outpatient (CLI) | payer BC | END | disposition home or self-care (01) | LOC: LABWHC1 11:57 | PROVIDERS: ATTEND Nurse Practitioner Family | DX: I12.9 Hypertensive chronic kidney disease with stage 1 through stage 4 chronic kidney disease, or unspecified chronic kidney disease (principal); N18.31 Chronic kidney disease, stage 3a | CPT/HCPCS: 36415; 83835 ==

== ENCOUNTER → 2024-11-20 | Outpatient (CLI) | payer BC ==
--- NOTE | 2024-11-20 21:12 | MR ---
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 COMPARISON: None. TECHNIQUE: Multi planar, multi sequence imaging was performed through the brain without administratio n of intravenous contrast. FINDINGS: The munson-white junctions, ventricular system, basal cisterns appear unremarkable. Diffusion-weighted imaging shows no evidence of restricted diffusion to suggest acute/subacute infarct. Intracranial art erial flow voids are maintained. Midline structures show no abnormality. No FLAIR signal abnormalitie s. The susceptibility weighted images do not reveal any evidence for micro-hemorrhage. The bone marrow signal is within normal limits. The globes are unremarkable without evidence of abno rmality of the optic nerve head. The optic nerves appear symmetric. Mild mucosal thickening in the in ferior left maxillary sinus. Right maxillary sinus 7 mm mucous retention cyst. Partial opacification of the inferior right mastoid air cells. IMPRESSION: 1. No evidence of intracranial mass or acute/subacute infarct. 2. No FLAIR signal abnormality or definitive optic nerve abnormality. 3. Trace right mastoid effusion. [facility], , 11/20/2024 9:10 PM
== END | disposition home or self-care (01) ==
LOC: RADMRIMAIN 12:49
PROVIDERS: ATTEND Ophthalmology
DX: H46.02 Optic papillitis, left eye (principal); H74.8X1 Other specified disorders of right middle ear and mastoid
CPT/HCPCS: 70551